=== PATIENT | male | born 1980 | race American Indian/Alaskan Native ===

== ENCOUNTER 2021-03-08 09:56 | Emergency (ER) | payer OTHER ==
[2021-03-08 10:03] VITALS: BP 137/91
--- NOTE | 2021-03-08 10:07 | Emergency Department Report ---
Minor Respiratory - HPI Chief Complaint: Upper Respiratory Infection Stated Complaint: CHEST PAIN/COUGH Time Seen by Provider: 03/08/21 10:06 ED Review of Systems ROS: Stated complaint: CHEST PAIN/COUGH Other details as noted in HPI Comment: All other systems reviewed and negative ED Past Medical Hx - Past Medical History Previous Medical History?: No - Surgical History Past Surgical History?: No - Family History Family history: no significant - Social History Smoking Status: Never Smoker Substance Use Type: None - Medications Home Medications: Home Medications Medication Instructions Recorded Confirmed Last Taken Type Benzonatate [Tessalon Perles] 100 mg PO Q12H PRN #20 capsule 03/08/21 Unknown Rx predniSONE [Deltasone] 20 mg PO DAILY #5 tablet 03/08/21 Unknown Rx Minor Respiratory Exam - Exam General: Vital signs noted. No distress. Alert and acting appropriately. HEENT: Yes Moist Mucous Membranes, No Pharyngeal Erythema, No Pharyngeal Exudates, No Rhinorrhea, No Conjuctival Injection, No Frontal Tenderness, No Maxillary Tenderness Ear: Neither TM Bulge, Neither TM Erythema, Neither EAC Pain, Neither EAC Discharge Neck: Yes Supple, No Adenopathy Lungs: Yes Good Air Exchange, No Wheezes, No Ronchi, No Stridor, No Cough, No Labored Respirations, No Retractions, No Use of Accessory Muscles, No Other Abnormal Lung Sounds Heart: Yes Regular, No Murmur Abdomen: Yes Normal Bowel Sounds, No Tenderness, No Peritoneal Signs Skin: No Rash, No Edema Neurologic: Alert and oriented, no deficits. Musculoskeletal: Unremarkable. ED Course Vital Signs 03/08/21 10:00 Temperature 97.5 F L Pulse Rate 82 Respiratory 18 Rate Blood Pressure 137/91 [Left] O2 Sat by Pulse 100 Oximetry ED Medical Decision Making - EKG Data Rate: normal - EKG Data When compared to previous EKG there are: no significant change Interpretation: no acute changes - Radiology Data Radiology results: report reviewed, image reviewed nap - Medical Decision Making xray nap Vital Signs 03/08/21 10:00 Temperature 97.5 F L Pulse Rate 82 Respiratory 18 Rate Blood Pressure 137/91 [Left] O2 Sat by Pulse 100 Oximetry - Differential Diagnosis uri/ cardiac pain Critical care attestation.: If time is entered above; I have spent that time in minutes in the direct care of this critically ill patient, excluding procedure time. ED Disposition Clinical Impression: URI (upper respiratory infection), Cough Disposition: 01 HOME / SELF CARE / HOMELESS Is pt being admited?: No Does the pt Need Aspirin: No Condition: Stable Instructions: Viral Respiratory Infection, [id number] Additional Instructions: meds as ordered today motrin or tylenol for pain or fever see pcp in 48 hours for recheck consider covid19 immunization stay well hydrated with water Referrals: TELMA SHEPPARD MD [Staff Physician] - 3-5 Days Time of Disposition: 10:31
--- NOTE | 2021-03-08 10:37 | XRay Report ---
XR chest routine 2V INDICATION / CLINICAL INFORMATION: cough. COMPARISON: None available. FINDINGS: SUPPORT DEVICES: None. HEART /PULMONARY VASCULATURE: No significant abnormality. LUNGS / PLEURA: No significant pulmonary or pleural abnormality. No pneumothorax. ADDITIONAL FINDINGS: No significant additional findings. IMPRESSION: 1. No acute findings. Signer Name: Bowen Yoder MD Signed: 03/08/2021 10:32 AM Workstation Name: [id number]
--- NOTE | 2021-03-09 09:07 | Electrocardiograph Report ---
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
== END 2021-03-08 10:47 | disposition home or self-care (01) ==
LOC: ED 09:56
DX: J06.9 Acute upper respiratory infection, unspecified (principal); Z79.899 Other long term (current) drug therapy
CPT/HCPCS: 71046; 93005; 99283